=== PATIENT | male | born 1985 | race American Indian/Alaskan Native ===

== ENCOUNTER 2017-08-21 11:56 | Emergency (ER) | payer OTHER ==
[2017-08-21 12:19] VITALS: TEMP 98.9; O2SAT 98
--- NOTE | 2017-08-21 12:32 | ED PDOC ---
Arrival/HPI - General Chief Complaint: Shortness Of Breath Time Seen by Provider: 08/21/17 12:27 Historian: Patient - History of Present Illness Narrative History of Present Illness (Text): 08/21/17 12:29 This 31 yo male presents to this ED c/o right lateral lower rib pain x 7 days. Patient stated pain was mild, but it has progressively worsen. Pain is worsen with movement, palpation or deep inspiration. Pain improves by remaining still. Denies sob, fever, recent trauma, heavy lifting, sick contact, or similar symptoms in the past. Patient has not try medication yet. Time/Duration: 1 week Symptom Onset: Gradual Symptom Course: Worsening Quality: Aching Context: Home Past Medical History - Provider Review Nursing Documentation Reviewed: Yes - Cardiac Hx Cardiac Disorders: No - Pulmonary Hx Respiratory Disorders: No - Neurological Hx Neurological Disorder: No - HEENT Hx HEENT Disorder: No - Renal Hx Renal Disorder: No - Endocrine/Metabolic Hx Endocrine Disorders: No - Hematological/Oncological Hx Blood Disorders: No - Integumentary Hx Psoriasis: Yes - Musculoskeletal/Rheumatological Hx Musculoskeletal Disorders: No - Gastrointestinal Hx Gastrointestinal Disorders: No - Genitourinary/Gynecological Hx Genitourinary Disorders: No - Psychiatric Hx Psychophysiologic Disorder: No Hx Substance Use: No Family/Social History - Physician Review Nursing Documentation Reviewed: Yes Family/Social History: Other (noncontributory) Smoking Status: Never Smoked Hx Alcohol Use: No Hx Substance Use: No Allergies/Home Meds Allergies/Adverse Reactions: Allergies Penicillins Allergy (Verified 08/21/17 12:09) RASH Home Medications: Home Meds Medication Instructions Recorded Confirmed Ustekinumab [Stelara] 90 mg IM .EVERY 4 MONTHS 08/21/17 08/21/17 Review of Systems - Review of Systems Constitutional: Normal. absent: Fatigue, Weight Change, Fevers Eyes: Normal ENT: Normal Respiratory: Normal. absent: SOB, Cough, Sputum, Wheezing Cardiovascular: Other (right lateral chest wall pain). absent: Palpitations, Edema, Calf Pain, Orthopnea, Syncope Gastrointestinal: Normal. absent: Abdominal Pain, Nausea, Vomiting Genitourinary Male: Normal. absent: Dysuria, Frequency Musculoskeletal: Normal Skin: Normal. absent: Rash, Skin Lesions Neurological: Normal. absent: Headache, Dizziness, Focal Weakness Endocrine: Normal Hemo/Lymphatic: Normal Psychiatric: Normal Physical Exam Vital Signs Temp Pulse Resp BP Pulse Ox 08/21/17 12:37 16 98 08/21/17 12:11 98.9 F 64 16 109/71 98 Temperature: Afebrile Blood Pressure: Normal Pulse: Regular Respiratory Rate: Normal Appearance: Positive for: Well-Appearing, Non-Toxic, Comfortable Pain Distress: Mild Mental Status: Positive for: Alert and Oriented X 3 - Systems Exam Head: Present: Atraumatic, Normocephalic Pupils: Present: PERRL Extroacular Muscles: Present: EOMI Conjunctiva: Present: Normal Mouth: Present: Moist Mucous Membranes Neck: Present: Normal Range of Motion Respiratory/Chest: Present: Clear to Auscultation, Good Air Exchange, Tender to Palpation ((+) mild right lateral rib tenderness on palpation. Pain is 100 % reproducible. No skin lesion or rash. No abscess, erythema, or ecchymosis seen over the tender area.). No: Respiratory Distress, Accessory Muscle Use, Wheezes, Rales, Retracting, Rhonchi, Tachypneic Cardiovascular: Present: Regular Rate and Rhythm, Normal S1, S2. No: Murmurs Abdomen: Present: Normal Bowel Sounds. No: Tenderness, Distention, Peritoneal Signs Back: Present: Normal Inspection. No: CVA Tenderness Upper Extremity: Present: Normal Inspection, Normal ROM, NORMAL PULSES. No: Cyanosis, Edema Lower Extremity: Present: Normal Inspection, Normal ROM. No: Edema Neurological: Present: GCS=15, CN II-XII Intact, Speech Normal, Motor Func Grossly Intact, Normal Sensory Function, Normal Cerebellar Funct, Gait Normal Skin: Present: Warm, Dry, Normal Color. No: Rashes Psychiatric: Present: Alert, Oriented x 3, Normal Insight, Normal Concentration Medical Decision Making ED Course and Treatment: 08/21/17 14:21 Patient remained stable during the course of ED visit. Chest wall improved with Toradol 30 mg IM. Chest x-rays and Ribs x-rays series were negative. Patient feels better and he wishes to be discharge home. Re-evaluation Time: 14:23 Reassessment Condition: Re-examined, Improved - RAD Interpretation Narrative RAD Interpretations (Text): 08/21/17 14:23 chest x-rays: NAD Ribs series x-rays: No Fx or pneumo Radiology Orders: 08/21/17 12:27 CHEST TWO VIEWS (PA/LAT) [RAD] Stat 08/21/17 12:28 RIBS RIGHT [RAD] Stat - Medication Orders Current Medication Orders: Discontinued Medications Ketorolac Tromethamine (Toradol) 30 mg IM STAT STA Stop: 08/21/17 12:29 Last Admin: 08/21/17 12:36 Dose: 30 mg MAR Pain Assessment Document 08/21/17 12:36 [facility] (Rec: 08/21/17 12:37 [facility] [id number]) Pain Reassessment Is this a pain reassessment? No Sleep Is patient sleeping during reassessment? No Presence of Pain Presence of Pain Yes Pain Scale Used Pain Scale Used Numeric Location Left, Right or Bilateral Right Description Description Constant Intensity of Pain at present 7 Duration 1 week Pain Behavior Guarding IM Administration Charges Document 08/21/17 12:36 [facility] (Rec: 08/21/17 12:37 [facility] [id number]) Injection Site MAR Injection Site Left Deltoid Charges for Administration # of IM Administrations 1 Disposition/Present on Arrival - Present on Arrival Any Indicators Present on Arrival: No History of DVT/PE: No History of Uncontrolled Diabetes: No Urinary Catheter: No History of Decub. Ulcer: No History Surgical Site Infection Following: None - Disposition Have Diagnosis and Disposition been Completed?: Yes Diagnosis: Chest wall pain Disposition: HOME/ ROUTINE Disposition Time: 14:24 Patient Plan: Discharge Condition: IMPROVED Discharge Instructions (ExitCare): Chest Wall Pain (ED) Additional Instructions: Call private doctor for follow up visit in 1-2 days. Take medication as instructed with food. Do breathing exercise as recommended by me every 2 hours for 10 minutes for at least 5 days. Return to emergency if symptoms worsen. Prescriptions: Azithromycin [Z-Abdi] 250 mg PO DAILY #4 tab Naproxen 500 mg PO BID PRN #14 tab PRN Reason: Pain, Severe (8-10) Omeprazole 40 mg PO DAILY #10 capsule.dr Forms: [facility] (Setswana), WORK NOTE
--- NOTE | 2017-08-21 14:46 | RAD ---
HISTORY: right sided chest wall pain COMPARISON: Correlation made with concurrent radiographs right ribs. TECHNIQUE: Chest PA and lateral FINDINGS: LUNGS: No active pulmonary disease. PLEURA: Mild biapical pleural thickening. No significant pleural effusion identified. No pneumothorax apparent. CARDIOVASCULAR: Normal. OSSEOUS STRUCTURES: No significant abnormalities. VISUALIZED UPPER ABDOMEN: Normal. OTHER FINDINGS: None. IMPRESSION: No active disease. Mild biapical pleural thickening.
[2017-08-21 14:48] VITALS: BP 128/79; PULSE 78; RESP 18
--- NOTE | 2017-08-21 14:48 | RAD ---
PROCEDURE: Right ribs dated 08/21/2017. HISTORY: Pain. COMPARISON: Correlation made with concurrent radiographs of the chest TECHNIQUE: Multiple views of the right ribs performed. FINDINGS: The current study reveals no definitive radiographic evidence of acute displaced right-sided rib fracture. The osseous structures appear intact. No evidence of pneumothorax. IMPRESSION: No evidence of acute displaced right-sided rib fracture. No evidence of pneumothorax so far as can be seen.
--- NOTE | 2017-08-22 20:10 | CARD ---
APPROVED REPORT EKG Measurement Heart [id number] <Conclusion> Sinus bradycardia Otherwise normal ECG
== END 2017-08-21 15:25 | disposition home or self-care (01) ==
LOC: MERGE 11:56 → ED 11:56
DX: R07.89 Other chest pain (principal); Z88.0 Allergy status to penicillin
CPT/HCPCS: 71020; 71100; 93005; 96372; 99283; J1885

== ENCOUNTER 2018-01-17 08:45 | Emergency (ER) | payer OTHER ==
[2018-01-17 09:22] VITALS: BMI 24.4
--- NOTE | 2018-01-17 09:24 | ED PDOC ---
Arrival/HPI - General Time Seen by Provider: 01/17/18 09:23 Historian: Patient - History of Present Illness Narrative History of Present Illness (Text): 01/17/18 32 year old male, with no significant PMH, who presents to the emergency department complaining of allergies since one week. Patient reports having nose congestion, and eye irritation. He notes going to his PMD for medication, and states it has no provided any significant relief. Patient denies shortness of breath, chest pain, fever, or other complaints. Time/Duration: 1 week Symptom Onset: Gradual Symptom Course: Unchanged Context: Home Past Medical History - Provider Review Nursing Documentation Reviewed: Yes - Cardiac Hx Cardiac Disorders: No - Pulmonary Hx Respiratory Disorders: No - Neurological Hx Neurological Disorder: No - HEENT Hx HEENT Disorder: No - Renal Hx Renal Disorder: No - Endocrine/Metabolic Hx Endocrine Disorders: No - Hematological/Oncological Hx Blood Disorders: No - Integumentary Hx Psoriasis: Yes - Musculoskeletal/Rheumatological Hx Musculoskeletal Disorders: No - Gastrointestinal Hx Gastrointestinal Disorders: No - Genitourinary/Gynecological Hx Genitourinary Disorders: No - Psychiatric Hx Psychophysiologic Disorder: No Hx Substance Use: No - Anesthesia Hx Anesthesia: No - Suicidal Assessment Feels Threatened In Home Enviroment: No Family/Social History - Physician Review Nursing Documentation Reviewed: Yes Family/Social History: Unknown Family HX Smoking Status: Never Smoked Hx Alcohol Use: No Hx Substance Use: No Allergies/Home Meds Allergies/Adverse Reactions: Allergies Penicillins Allergy (Intermediate, Verified 01/17/18 09:34) RASH Home Medications: Home Meds Medication Instructions Recorded Confirmed Ustekinumab [Stelara] 90 mg IM .EVERY 4 MONTHS 08/21/17 01/17/18 Ketotifen Fumarate [Zaditor] 5 ml OU DAILY 01/17/18 01/17/18 Levocetirizine Dihydrochloride 5 mg PO DAILY 01/17/18 01/17/18 [Xyzal] Montelukast [Singulair] 10 mg PO DAILY 01/17/18 01/17/18 Review of Systems - Physician Review All systems were reviewed & negative as marked: Yes - Review of Systems Eyes: Eye Pain (eye irritation ), Other ENT: Sinus Congestion Respiratory: absent: SOB Cardiovascular: absent: Chest Pain Gastrointestinal: absent: Abdominal Pain Physical Exam Vital Signs Reviewed: Yes Vital Signs Temp Pulse Resp BP Pulse Ox 01/17/18 11:00 78 18 123/77 99 01/17/18 09:07 98.6 F 78 18 138/59 L 98 Temperature: Afebrile Blood Pressure: Hypotensive Pulse: Regular Respiratory Rate: Normal Appearance: Positive for: Well-Appearing, Non-Toxic, Comfortable Pain Distress: None Mental Status: Positive for: Alert and Oriented X 3 - Systems Exam Head: Present: Atraumatic, Normocephalic, Tenderness (facial maxiallary tenderness) Pupils: Present: PERRL Extroacular Muscles: Present: EOMI Conjunctiva: Present: Normal Mouth: Present: Moist Mucous Membranes Respiratory/Chest: Present: Clear to Auscultation, Good Air Exchange. No: Respiratory Distress, Accessory Muscle Use, Wheezes, Rales, Rhonchi Cardiovascular: Present: Regular Rate and Rhythm, Normal S1, S2. No: Murmurs Neurological: Present: GCS=15, CN II-XII Intact, Speech Normal Skin: Present: Warm, Dry, Normal Color. No: Rashes Psychiatric: Present: Alert, Oriented x 3, Normal Insight, Normal Concentration Medical Decision Making ED Course and Treatment: 01/17/18 Impression: 32 year old male with facial maxillary tenderness complaining of allergies associated with eye irritation and nose congestion. Plan: -- Reassess and disposition Progress Notes: On reevaluation the patient feels better and is in no acute distress. I have discussed the results and plan with the patient, who expresses understanding. Patient given the opportunity to ask question, all questions were answered and there is agreement with the plan to discharge the patient home. Patient is stable for discharge. - Scribe Statement The provider has reviewed the documentation as recorded by the Hermes Garcia Provider Scribe Attestation: All medical record entries made by the Hermes were at my direction and personally dictated by me. I have reviewed the chart and agree that the record accurately reflects my personal performance of the history, physical exam, medical decision making, and the department course for this patient. I have also personally directed, reviewed, and agree with the discharge instructions and disposition. Disposition/Present on Arrival - Present on Arrival Any Indicators Present on Arrival: No History of DVT/PE: No History of Uncontrolled Diabetes: No Urinary Catheter: No History Surgical Site Infection Following: None - Disposition Have Diagnosis and Disposition been Completed?: Yes Diagnosis: Seasonal allergies Disposition: HOME/ ROUTINE Disposition Time: 09:30 Condition: GOOD Discharge Instructions (ExitCare): Seasonal Allergies in Adults Additional Instructions: Thank you for letting us take care of you today. The emergency medical care you received today was directed at your acute symptoms. If you were prescribed any medication, please fill it and take as directed. It may take several days for your symptoms to resolve. Return to the Emergency Department if your symptoms worsen, do not improve, or if you have any other problems. Please contact your doctor or call one of the physicians/clinics you have been referred to that are listed on the Patient Visit Information form that is included in your discharge packet. Bring any paperwork you were given at discharge with you along with any medications you are taking to your follow up visit. Our treatment cannot replace ongoing medical care by a primary care provider (PCP) outside of the emergency department. Thank you for allowing the [facility] team to be part of your care today. Follow up with your primary care doctor in 2-3 days for re-evaluation and further management. Prescriptions: Azithromycin [Zithromax] 250 mg PO DAILY #6 tab Referrals: Mantara Fabian Bray, [Non-Staff] - Follow up with primary Forms: [facility] (Cymro)
[2018-01-17 09:35] VITALS: PULSE 78; RESP 18
[2018-01-17 11:07] VITALS: TEMP 98.6
[2018-01-17 11:21] VITALS: BP 123/77; O2SAT 99
== END 2018-01-17 11:09 | disposition home or self-care (01) ==
LOC: ED 08:45
DX: J30.2 Other seasonal allergic rhinitis (principal)

== ENCOUNTER 2018-04-06 20:19 | Emergency (ER) | payer OTHER ==
[2018-04-06 20:39] VITALS: BMI 24.8
[2018-04-06 20:41] VITALS: RESP 18; O2SAT 98
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
[2018-04-06 21:55] VITALS: BP 127/72; PULSE 72; TEMP 98.7
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
== END 2018-04-06 21:55 | disposition home or self-care (01) ==
LOC: ED 20:19
DX: M54.9 Dorsalgia, unspecified (principal); M25.512 Pain in left shoulder
CPT/HCPCS: 72110; 73030; 96372; 99285; J1885

== ENCOUNTER 2018-04-30 12:51 | Emergency (ER) | payer OTHER ==
[2018-04-30 12:51] VITALS: BMI 24.8
[2018-04-30] MEDS ORDERED: Sodium Chloride 0.9% 1,000 ML IV STA (13:06)
--- NOTE | 2018-04-30 13:23 | ED PDOC ---
Arrival/HPI - General Chief Complaint: GI Problem Time Seen by Provider: 04/30/18 12:52 Historian: Patient - History of Present Illness Narrative History of Present Illness (Text): 04/30/18 13:06 Patient is a 32 year old male whose past medical history includes psoriasis, who presents to the Emergency department complaining of abdominal pain, which started 3 days ago. Patient reports that 3 days ago he started experiencing episodes of vomiting, abdominal pain, nausea, and diarrhea. He mentions taking medication for his psoriasis every 4 months. Patient denies any fever, chills, chest pain, shortness of breath, urinary symptoms, back pain, neck pain, headache, dizziness, or any other complaints. PMD: Time/Duration: < week Symptom Onset: Sudden Symptom Course: Unchanged Context: Home Past Medical History - Provider Review Nursing Documentation Reviewed: Yes - Cardiac Hx Cardiac Disorders: No - Pulmonary Hx Respiratory Disorders: No - Neurological Hx Neurological Disorder: No - HEENT Hx HEENT Disorder: No - Renal Hx Renal Disorder: No - Endocrine/Metabolic Hx Endocrine Disorders: No - Hematological/Oncological Hx Blood Disorders: No - Integumentary Hx Dermatological Disorder: Yes Hx Psoriasis: Yes - Musculoskeletal/Rheumatological Hx Musculoskeletal Disorders: Yes Hx Back Pain: Yes - Gastrointestinal Hx Gastrointestinal Disorders: No - Genitourinary/Gynecological Hx Genitourinary Disorders: No - Psychiatric Hx Psychophysiologic Disorder: No Hx Substance Use: No - Anesthesia Hx Anesthesia: No - Suicidal Assessment Feels Threatened In Home Enviroment: No Family/Social History - Physician Review Nursing Documentation Reviewed: Yes Family/Social History: No Known Family HX Smoking Status: Never Smoked Hx Alcohol Use: No Hx Substance Use: No Allergies/Home Meds Allergies/Adverse Reactions: Allergies Penicillins Allergy (Intermediate, Verified 04/30/18 12:53) RASH Review of Systems - Physician Review All systems were reviewed & negative as marked: Yes - Review of Systems Constitutional: absent: Fevers, Night Sweats Respiratory: absent: SOB Cardiovascular: absent: Chest Pain Gastrointestinal: Abdominal Pain, Diarrhea, Nausea, Vomiting Genitourinary Male: absent: Urinary Output Changes Musculoskeletal: absent: Back Pain, Neck Pain Neurological: absent: Headache, Dizziness Physical Exam Vital Signs Reviewed: Yes Vital Signs Temp Pulse Resp BP Pulse Ox 04/30/18 17:54 98.1 F 85 19 121/83 100 04/30/18 17:13 98 F 85 19 124/83 98 04/30/18 15:18 98.2 F 85 19 123/56 L 99 04/30/18 13:59 89 19 04/30/18 12:53 98.7 F 70 16 118/71 97 Temperature: Afebrile Blood Pressure: Normal Pulse: Regular Respiratory Rate: Normal Appearance: Positive for: Well-Appearing Mental Status: Positive for: Alert and Oriented X 3 - Systems Exam Head: Present: Atraumatic, Normocephalic Pupils: Present: PERRL Extroacular Muscles: Present: EOMI Conjunctiva: Present: Normal Mouth: Present: Moist Mucous Membranes Neck: Present: Normal Range of Motion Respiratory/Chest: Present: Clear to Auscultation, Good Air Exchange. No: Respiratory Distress, Accessory Muscle Use Cardiovascular: Present: Regular Rate and Rhythm, Normal S1, S2. No: Murmurs Abdomen: Present: Tenderness (mild nonfocal tenderness, worse in epigastric area.). No: Distention, Peritoneal Signs Back: Present: Normal Inspection Upper Extremity: Present: Normal Inspection. No: Cyanosis, Edema Lower Extremity: Present: Normal Inspection. No: Edema Neurological: Present: GCS=15, CN II-XII Intact, Speech Normal Skin: Present: Warm, Dry, Normal Color. No: Rashes Psychiatric: Present: Alert, Oriented x 3, Normal Insight, Normal Concentration Medical Decision Making ED Course and Treatment: 04/30/18 13:39 Impression: Patient is a 32 year old male who presents to the Emergency department complaining of abdominal pain, nausea, vomiting, and diarrhea for the past 3 days. Differential Diagnosis included but are not limited to: consider gastrits colits pancreatis, Plan: -- Labs -- Blood work -- Zofran -- Protonix -- IV fluid -- Urinalysis -- Reassess and disposition Prior Visits: Notes and results from previous visits were reviewed. Progress Notes: pt reassesed increasing pain rlq additional ct added. while in ct, pt states he no longer wanted ct and returned from ct without ct scan performed. discussed at length about possibility of appendcitis. as pt states pain is improving, he will return with worsoring. advised risk of perforation infection. pt understands requests immediate dc. 04/30/18 Leaving Against Medical Advice (AMA): The patient is choosing to leave against medical advice. I have personally explained to the patient that choosing to do so may result in permanent bodily harm or . I have discussed at great length that without further evaluation and monitoring there may be unforeseen circumstances and/or deterioration causing permanent bodily harm or as a result of their choice. The patient is alert, oriented, and shows the mental capacity to make clear decisions regarding the patients health care at this time. The patient continues to wish to leave against medical advice. In light of the patients decision to leave against medical advice, follow-up has been arranged and the patient is aware of the importance to following up as instructed. The patient has been advised that they should return to the emergency room immediately if they change their mind at any time, or if their condition begins to change or worsen in any way. 04/30/18 19:28 - Lab Interpretations Lab Results: 04/30/18 14:00 04/30/18 16:00 Lab Results 04/30/18 16:00: Sodium 144, Potassium 4.1, Chloride 107, Carbon Dioxide 27, Anion Gap 14, BUN 7, Creatinine 0.8, Est GFR ( Amer) > 60, Est GFR (Non- Af Amer) > 60, Random Glucose 80, Calcium 9.0, Magnesium 2.0, Total Bilirubin 0.9, Direct Bilirubin 0.2, AST 18, ALT 23, Alkaline Phosphatase 71, Total Protein 7.1, Albumin 4.0, Globulin 3.1, Albumin/Globulin Ratio 1.3, Lipase 189 04/30/18 14:00: Urine Color Yellow, Urine Appearance Clear, Urine pH 7.5, Ur Specific [place] 1.020, Urine Protein 30 H, Urine Glucose (UA) Negative, Urine Ketones Negative, Urine Blood Negative, Urine Nitrate Negative, Urine Bilirubin Negative, Urine Urobilinogen 0.2, Ur Leukocyte Esterase Negative, Urine RBC 0 - 2, Urine WBC 0 - 2, Ur Epithelial Cells 0 - 2, Urine Bacteria Mod 04/30/18 14:00: PT 12.7 H, INR 1.11, APTT 26.8 04/30/18 14:00: WBC 4.0 L, RBC 5.11, Hgb 14.2, Hct 42.0, MCV 82.2, MCH 27.8, MCHC 33.8, RDW 11.9, Plt Count 160, MPV 11.4 H, Gran % 51.4, Lymph % (Auto) 34.8 , Stevens % (Auto) 9.8 H, Eos % (Auto) 3.0, Baso % (Auto) 1.0, Gran # 2.03, Lymph # (Auto) 1.4, Stevens # (Auto) 0.4, Eos # (Auto) 0.1, Baso # (Auto) 0.04 I have reviewed the lab results: Yes - Medication Orders Current Medication Orders: Discontinued Medications Sodium Chloride (Sodium Chloride 0.9%) 1,000 mls @ 1,000 mls/hr IV .Q1H STA Stop: 04/30/18 14:05 Last Admin: 04/30/18 13:53 Dose: 1,000 mls/hr eMAR Start Stop Document 04/30/18 13:53 GMI (Rec: 04/30/18 13:58 GMI [id number]) Intravenous Solution Start Date 04/30/18 Start Time 13:58 End Date 04/30/18 End time 16:57 Total Infusion Time 179 Ondansetron HCl (Zofran Inj) 4 mg IVP STAT STA Stop: 04/30/18 13:07 Last Admin: 04/30/18 13:52 Dose: 4 mg IVP Administration Document 04/30/18 13:52 GMI (Rec: 04/30/18 13:52 GMI [id number]) Charges for Administration # of IVP Administrations 1 Pantoprazole Sodium (Protonix Inj) 40 mg IVP STAT STA Stop: 04/30/18 13:07 Last Admin: 04/30/18 13:52 Dose: 40 mg IVP Administration Document 04/30/18 13:52 GMI (Rec: 04/30/18 13:52 GMI [id number]) Charges for Administration # of IVP Administrations 1 - Scribe Statement The provider has reviewed the documentation as recorded by the Gitaibben Shen Provider Scribe Attestation: All medical record entries made by the Scribe were at my direction and personally dictated by me. I have reviewed the chart and agree that the record accurately reflects my personal performance of the history, physical exam, medical decision making, and the department course for this patient. I have also personally directed, reviewed, and agree with the discharge instructions and disposition. Disposition/Present on Arrival - Present on Arrival Any Indicators Present on Arrival: No History of DVT/PE: No History of Uncontrolled Diabetes: No Urinary Catheter: No History of Decub. Ulcer: No History Surgical Site Infection Following: None - Disposition Have Diagnosis and Disposition been Completed?: Yes Diagnosis: Abdominal pain, Left against medical advice Disposition: AGAINST MEDICAL ADVICE Disposition Time: 05:00 Condition: UNKNOWN Discharge Instructions (ExitCare): Acute Abdomen (Belly Pain), Adult (DC), Leaving Against Medical Advice Additional Instructions: follow up with your doctor/clinic and specialsit .you are leaving prior to ct scan. we have not excluded appendcitis. return to er with worsening symptoms or concerns . Prescriptions: Famotidine [Pepcid] 20 mg PO DAILY #20 tab Referrals: Director Of Field Sales Service [Outside] - Follow up with primary [facility] [place] [Outside] - Follow up with primary Richard Mahan MD [Staff Provider] - Follow up with primary Rip Quick MD [Primary Care Provider] - Follow up with primary Forms: [employer] ([place])
[2018-04-30 14:02] VITALS: RESP 19
[2018-04-30 14:25] LABS: PH,URINE 7.5 (4.7-8.0); URINE BILIRUBIN NEGATIVE (NEGATIVE); URINE BLOOD NEGATIVE (NEGATIVE); URINE GLUCOSE (UA) NEGATIVE (NEGATIVE); URINE LEUKOCYTE ESTERASE NEGATIVE Leu/uL (NEGATIVE); URINE PROTEIN 30 mg/dL (<30 mg/dL); URINE UROBILINOGEN 0.2 E.U./dL (<1 E.U./dL)
[2018-04-30 14:26] LABS: URINE APPEARANCE CLEAR (CLEAR); URINE COLOR YELLOW (YELLOW)
[2018-04-30 14:30] LABS: BASO # 0.04 K/mm3 (0.0-2.0); EOS # 0.1 (0.0-0.7); GRAN # 2.03 (1.4-6.5); GRAN % 51.4 % (50.0-68.0); HEMOGLOBIN 14.2 g/dL (14.0-18.0); LYMPH # 1.4 (1.2-3.4); LYMPH % 34.8 % (22.0-35.0); MEAN CELL VOLUME 82.2 fl (80.0-105.0); MEAN CORPUSCULAR HEMOGLOBIN 27.8 pg (25.0-35.0); MEAN CORPUSCULAR HGB CONC 33.8 g/dl (31.0-37.0); MEAN PLATELET VOLUME 11.4 fl (7.0-11.0); MONO # 0.4 (0.1-0.6); MONO % 9.8 % (1.0-6.0); RBC 5.11 10^6/uL (3.5-6.1); RED CELL DISTRIBUTION WIDTH 11.9 % (11.5-14.5)
[2018-04-30 14:36] LABS: INR 1.11; PARTIAL THROMBOPLASTIN TIME 26.8 Seconds (25.1-36.5); PROTHROMBIN TIME 12.7 SECONDS (9.4-12.5); URINE EPITHELIAL CELLS 0 - 2 /hpf (0-5); URINE RBC 0 - 2 /hpf (0-2); URINE WBC 0 - 2 /hpf (0-6)
[2018-04-30 14:37] LABS: URINE BACTERIA MOD (NEG)
[2018-04-30 15:19] VITALS: PULSE 85
[2018-04-30 16:38] LABS: ALB/GLOB RATIO 1.3 (1.1-1.8)
[2018-04-30 16:40] LABS: ALT/SGPT 23 U/L (7-56); BILIRUBIN,DIRECT 0.2 mg/dL (0.0-0.4); BLOOD UREA NITROGEN 7 mg/dL (7-21); LIPASE 189 U/L (23-300)
[2018-04-30 16:42] LABS: AST/SGOT 18 U/L (17-59); GFR AFRICAN-AMERICAN > 60; GFR NON-AFRICAN AMERICAN > 60
[2018-04-30] MEDS ORDERED: Iohexol 350 MG/100 ML VIAL ONE (17:34)
[2018-04-30 17:55] VITALS: BP 121/83; TEMP 98.1; O2SAT 100
== END 2018-04-30 17:54 | disposition left against medical advice (07) ==
LOC: ED 12:51
DX: R10.9 Unspecified abdominal pain (principal)
CPT/HCPCS: 80053; 81001; 82248; 83690; 83735; 85025; 85610; 85730; 96361; 96374; 96375; 99284; C9113; J2405; J7030; Q9967

== ENCOUNTER 2018-05-03 08:39 | Emergency (ER) | payer OTHER ==
[2018-05-03 08:39] VITALS: BMI 24.8
[2018-05-03 08:55] VITALS: TEMP 98.8; O2SAT 100
[2018-05-03] MEDS ORDERED: Sodium Chloride 0.9% 1,000 ML IV STA (08:58)
--- NOTE | 2018-05-03 09:35 | ED PDOC ---
Arrival/HPI - General Chief Complaint: GI Problem Time Seen by Provider: 05/03/18 08:40 Historian: Patient - History of Present Illness Narrative History of Present Illness (Text): 05/03/18 09:27 32yo male with pmhx of Psoriasis present with 6days history of intermittent nausea, vomiting, diarrhea and abdominal pain. He states he was seen here 3days ago and left before CT was done. States he came for persistent symptoms. Denies fever, chills, back pain, urinary symptoms, melena, hematemesis, sick contact, travel, any other complaint. Past Medical History - Provider Review Nursing Documentation Reviewed: Yes - Infectious Disease Hx of Infectious Diseases: None - Cardiac Hx Cardiac Disorders: No - Pulmonary Hx Respiratory Disorders: No - Neurological Hx Neurological Disorder: No - HEENT Hx HEENT Disorder: No - Renal Hx Renal Disorder: No - Endocrine/Metabolic Hx Endocrine Disorders: No - Hematological/Oncological Hx Blood Disorders: No - Integumentary Hx Dermatological Disorder: Yes Hx Psoriasis: Yes - Musculoskeletal/Rheumatological Hx Musculoskeletal Disorders: Yes Hx Back Pain: Yes - Gastrointestinal Hx Gastrointestinal Disorders: No - Genitourinary/Gynecological Hx Genitourinary Disorders: No - Psychiatric Hx Psychophysiologic Disorder: No Hx Substance Use: No - Anesthesia Hx Anesthesia: No - Suicidal Assessment Feels Threatened In Home Enviroment: No Family/Social History - Physician Review Nursing Documentation Reviewed: Yes Family/Social History: Unknown Family HX Smoking Status: Never Smoked Hx Alcohol Use: No Hx Substance Use: No Allergies/Home Meds Allergies/Adverse Reactions: Allergies Penicillins Allergy (Intermediate, Verified 04/30/18 12:53) RASH Home Medications: Home Meds Medication Instructions Recorded Confirmed Ustekinumab [Stelara] 90 mg SC 05/03/18 Review of Systems - Physician Review All systems were reviewed & negative as marked: Yes - Review of Systems Constitutional: Normal Eyes: Normal ENT: Normal Respiratory: Normal Cardiovascular: Normal Gastrointestinal: Abdominal Pain, Diarrhea, Nausea, Vomiting. absent: Constipation, Hematochezia, Hematemesis Genitourinary Male: Normal Musculoskeletal: Normal Skin: Normal Neurological: Normal Endocrine: Normal Hemo/Lymphatic: Normal Psychiatric: Normal Physical Exam Vital Signs Reviewed: Yes Vital Signs Temp Pulse Resp BP Pulse Ox 05/03/18 12:10 100 05/03/18 12:04 74 17 118/80 100 05/03/18 08:51 98.8 F 68 16 116/70 100 Temperature: Afebrile Blood Pressure: Normal Pulse: Regular Respiratory Rate: Normal Appearance: Positive for: Well-Appearing, Non-Toxic, Comfortable Pain Distress: None Mental Status: Positive for: Alert and Oriented X 3 - Systems Exam Head: Present: Atraumatic, Normocephalic Pupils: Present: PERRL Extroacular Muscles: Present: EOMI Conjunctiva: Present: Normal Mouth: Present: Moist Mucous Membranes Neck: Present: Normal Range of Motion Respiratory/Chest: Present: Clear to Auscultation, Good Air Exchange. No: Respiratory Distress, Accessory Muscle Use Cardiovascular: Present: Regular Rate and Rhythm, Normal S1, S2. No: Murmurs Abdomen: Present: Tenderness (Localized tenderness to left sided periumbilical area), Other (Soft). No: Distention, Peritoneal Signs, Rebound, Guarding, McBurney's Point Tender, Rovsing's Sign Present Back: Present: Normal Inspection Upper Extremity: Present: Normal Inspection. No: Cyanosis, Edema Lower Extremity: Present: Normal Inspection. No: Edema Neurological: Present: GCS=15, CN II-XII Intact, Speech Normal Skin: Present: Warm, Dry, Normal Color. No: Rashes Psychiatric: Present: Alert, Oriented x 3, Normal Insight, Normal Concentration Medical Decision Making ED Course and Treatment: 05/03/18 11:50 32yo male present with 6 days history of abdominal pain with associated N/V/D. Labs Zofran, Pepcid, 1L NS Abdominal/Pelvic CT Will reassess 05/03/18 12:23 Pt was hemodynamcially stable in ED. On re evaluation he noted improvement of his symptoms. Lab was reviewed and leukopenia was noted. symptom likely viral enteritis Abdominal CT - Negative Result was DW the pt. He was advised to follow BRAT diet and drink plenty of fluid Referred to his PMD. TRT ED for any new or worsening symptoms. - Lab Interpretations Lab Results: 05/03/18 10:00 05/03/18 10:00 Lab Results 05/03/18 10:00: Sodium 143, Potassium 3.9, Chloride 104, Carbon Dioxide 25, Anion Gap 18, BUN 9, Creatinine 0.8, Est GFR ( Amer) > 60, Est GFR (Non- Af Amer) > 60, Random Glucose 90, Calcium 9.5, Magnesium 2.1, Total Bilirubin 1.2, AST 28, ALT 23, Alkaline Phosphatase 75, Total Protein 8.2, Albumin 4.6, Globulin 3.6, Albumin/Globulin Ratio 1.3, Lipase 178 05/03/18 10:00: Urine Color Yellow, Urine Appearance Clear, Urine pH 6.5, Ur Specific [place] <= 1.005, Urine Protein Negative, Urine Glucose (UA) Negative, Urine Ketones Negative, Urine Blood Trace-intact H, Urine Nitrate Negative, Urine Bilirubin Negative, Urine Urobilinogen 0.2, Ur Leukocyte Esterase Negative , Urine RBC 1 - 3, Urine WBC 0 - 2, Ur Epithelial Cells None, Urine Bacteria Mod 05/03/18 10:00: PT 12.3, INR 1.07, APTT 49.8 H 05/03/18 10:00: WBC 3.9 L, RBC 5.14, Hgb 14.1, Hct 42.2, MCV 82.1, MCH 27.4, MCHC 33.4, RDW 11.9, Plt Count 188, MPV 11.2 H, Gran % 49.9 L, Lymph % (Auto) 34.3, [place] % (Auto) 11.9 H, Eos % (Auto) 2.3, Baso % (Auto) 1.6, Gran # 1.92, Lymph # (Auto) 1.3, [place] # (Auto) 0.5, Eos # (Auto) 0.1, Baso # (Auto) 0.06 - RAD Interpretation Radiology Orders: 05/03/18 08:58 ABD & PELVIS IV CONTRAST ONLY [CT] Stat - Medication Orders Current Medication Orders: Discontinued Medications Famotidine (Pepcid) 20 mg IVP STAT STA Stop: 05/03/18 09:00 Last Admin: 05/03/18 09:32 Dose: 20 mg IVP Administration Document 05/03/18 09:32 SF (Rec: 05/03/18 09:32 [email or web address]) Charges for Administration # of IVP Administrations 1 Sodium Chloride (Sodium Chloride 0.9%) 1,000 mls @ 999 mls/hr IV .Q1H1M STA Stop: 05/03/18 09:58 Last Admin: 05/03/18 09:31 Dose: 999 mls/hr eMAR Start Stop Document 05/03/18 09:31 SF (Rec: 05/03/18 09:32 [id number]) Intravenous Solution Start Date 05/03/18 Start Time 09:31 End Date 05/03/18 End time 10:32 Total Infusion Time 61 Loperamide HCl (Imodium) 4 mg PO ONCE STA Stop: 05/03/18 11:53 Last Admin: 05/03/18 12:08 Dose: 4 mg Ondansetron HCl (Zofran Inj) 4 mg IVP ONCE ONE Stop: 05/03/18 08:59 Last Admin: 05/03/18 09:32 Dose: 4 mg IVP Administration Document 05/03/18 09:32 SF (Rec: 05/03/18 09:32 [email or web address]) Charges for Administration # of IVP Administrations 1 Disposition/Present on Arrival - Present on Arrival Any Indicators Present on Arrival: No History of DVT/PE: No History of Uncontrolled Diabetes: No Urinary Catheter: No History of Decub. Ulcer: No History Surgical Site Infection Following: None - Disposition Have Diagnosis and Disposition been Completed?: Yes Diagnosis: Abdominal pain, Vomiting and diarrhea Disposition: HOME/ ROUTINE Disposition Time: 11:55 Patient Plan: Discharge Patient Problems: Current Active Problems Problem Status Onset Abdominal pain Acute Vomiting and diarrhea Acute Condition: STABLE Discharge Instructions (ExitCare): Acute Abdomen (Belly Pain), Nausea and Vomiting, Adult Additional Instructions: Follow BRAT diet (Banana, plain rice, tea, apple sauce, crackers, tea) Follow up with your Doctor Return to ED for any new or worsening symptoms Prescriptions: Ondansetron ODT [Zofran ODT] 4 mg PO Q6 #7 odt Referrals: Rip Quick MD [Primary Care Provider] - Follow up with primary Forms: [employer] ([place])
[2018-05-03 10:09] LABS: PH,URINE 6.5 (4.7-8.0); URINE BILIRUBIN NEGATIVE (NEGATIVE); URINE BLOOD TRACE-INTACT (NEGATIVE); URINE GLUCOSE (UA) NEGATIVE (NEGATIVE); URINE LEUKOCYTE ESTERASE NEGATIVE Leu/uL (NEGATIVE); URINE PROTEIN NEGATIVE mg/dL (<30 mg/dL); URINE UROBILINOGEN 0.2 E.U./dL (<1 E.U./dL)
[2018-05-03 10:12] LABS: BASO # 0.06 K/mm3 (0.0-2.0); BASO % 1.6 % (0.0-3.0); EOS # 0.1 (0.0-0.7); EOS % 2.3 % (1.5-5.0); GRAN # 1.92 (1.4-6.5); GRAN % 49.9 % (50.0-68.0); HEMOGLOBIN 14.1 g/dL (14.0-18.0); LYMPH # 1.3 (1.2-3.4); LYMPH % 34.3 % (22.0-35.0); MEAN CELL VOLUME 82.1 fl (80.0-105.0); MEAN CORPUSCULAR HEMOGLOBIN 27.4 pg (25.0-35.0); MEAN CORPUSCULAR HGB CONC 33.4 g/dl (31.0-37.0); MEAN PLATELET VOLUME 11.2 fl (7.0-11.0); MONO # 0.5 (0.1-0.6); MONO % 11.9 % (1.0-6.0); RBC 5.14 10^6/uL (3.5-6.1); RED CELL DISTRIBUTION WIDTH 11.9 % (11.5-14.5); WHITE BLOOD COUNT 3.9 10^3/ul (4.5-11.0)
[2018-05-03 10:25] LABS: URINE APPEARANCE CLEAR (CLEAR); URINE COLOR YELLOW (YELLOW)
[2018-05-03 10:27] LABS: ALB/GLOB RATIO 1.3 (1.1-1.8); ALBUMIN 4.6 g/dL (3.0-4.8); ALT/SGPT 23 U/L (7-56); AST/SGOT 28 U/L (17-59); BLOOD UREA NITROGEN 9 mg/dL (7-21); CALCIUM 9.5 mg/dL (8.4-10.5); GFR AFRICAN-AMERICAN > 60; GFR NON-AFRICAN AMERICAN > 60; LIPASE 178 U/L (23-300)
[2018-05-03 10:28] LABS: INR 1.07; PARTIAL THROMBOPLASTIN TIME 49.8 Seconds (25.1-36.5); PROTHROMBIN TIME 12.3 SECONDS (9.4-12.5)
[2018-05-03] MEDS ORDERED: Iohexol 350 MG/100 ML VIAL ONE (10:35)
[2018-05-03 10:51] LABS: URINE BACTERIA MOD (NEG); URINE WBC 0 - 2 /hpf (0-6)
--- NOTE | 2018-05-03 11:42 | CT ---
Date of service: 05/03/2018 PROCEDURE: CT Abdomen and Pelvis with contrast HISTORY: abdominal pain COMPARISON: None. TECHNIQUE: Contrast dose: 100 cc of Omni 350 Radiation dose: Total exam DLP = 410 mGy-cm. This CT exam was performed using one or more of the following dose reduction techniques: Automated exposure control, adjustment of the mA and/or kV according to patient size, and/or use of iterative reconstruction technique. FINDINGS: LOWER THORAX: Unremarkable. LIVER: Unremarkable. No gross lesion or ductal dilatation. GALLBLADDER AND BILE DUCTS: Unremarkable. PANCREAS: Unremarkable. No gross lesion or ductal dilatation. SPLEEN: Unremarkable. ADRENALS: Unremarkable. No mass. KIDNEYS AND URETERS: Unremarkable. No hydronephrosis. No solid mass. VASCULATURE: Unremarkable. No aortic aneurysm. BOWEL: Unremarkable. No obstruction. No gross mural thickening. APPENDIX: Normal appendix. PERITONEUM: Unremarkable. No free fluid. No free air. LYMPH NODES: Unremarkable. No enlarged lymph nodes. BLADDER: Unremarkable. REPRODUCTIVE: Unremarkable. BONES: No acute fracture. OTHER FINDINGS: None. IMPRESSION: No acute findings
[2018-05-03 12:04] VITALS: RESP 17
[2018-05-03 12:05] VITALS: BP 118/80; PULSE 74
== END 2018-05-03 12:10 | disposition home or self-care (01) ==
LOC: ED 08:39
DX: R10.9 Unspecified abdominal pain (principal); R11.0 Nausea; R19.7 Diarrhea, unspecified
CPT/HCPCS: 74177; 80053; 81001; 83690; 83735; 85025; 85610; 85730; 96361; 96374; 96375; 99285; J2405; J7030; Q9967